=== PATIENT | female | born 1955 | race Caucasian/White ===

== ENCOUNTER 2019-05-02 07:12 | Day surgery (SDC) | payer BC ==
[~2019-05-02] VITALS: Ht 185.4 cm; Wt 66.5 kg
[2019-05-02] VITALS (9 sets, daily range): BP systolic 102–151; BP diastolic 56–71; PULSE 72–78; RESP 14–31; Ht 185.4 cm; Wt 66.5 kg
[~2019-05-02 07:12] MED LIST: ATOR20TA65 ORAL; FLEC100T ORAL; MAGN400T27 PO; METO-335 ORAL; SULF1TAB31 PO
[2019-05-02] MEDS ORDERED: LIDOCAINE 2% (MDV) 20 ML INJ ONE (08:46)
[2019-05-02] MEDS ORDERED: ROCURONIUM 50 MG INJ ONE (09:35)
[2019-05-02] MEDS ORDERED: PROPOFOL 100 ML ONE (09:35)
[2019-05-02] MEDS ORDERED: LIDOCAINE 1% (MPF) 30 ML INJ ONE (09:38)
[2019-05-02] MEDS ORDERED: FENTAnyl 50 MCG/ML VIAL ONE (09:58)
[2019-05-02] MEDS ORDERED: LIDOCAINE 2% (SDV) 5 ML INJ ONE (09:58)
[2019-05-02] MEDS ORDERED: SUGAMMADEX SODIUM 200 MG/2 ML VIAL IV ONE (10:28)
[2019-05-02] MEDS ORDERED: DIPHENHYDRAMINE 50 MG INJ IV PRN (11:00)
[2019-05-02] MEDS ORDERED: OXYCODONE/ACETAMINOPHEN (5/325) TAB PO PRN ×2 (11:00)
[2019-05-02] MEDS ORDERED: ALBUTEROL 0.083% (NEB) 2.5 MG/3 ML AMP HHN PRN (11:00)
[2019-05-02] MEDS ORDERED: METOCLOPRAMIDE 10 MG INJ IV PRN (11:00)
[2019-05-02] MEDS ORDERED: hydrALAzine 20 MG INJ IV PRN (11:00)
[2019-05-02] MEDS ORDERED: FENTAnyl 50 MCG/ML VIAL IV PRN ×3 (11:00)
[2019-05-02] MEDS ORDERED: MEPERIDINE 25 MG INJ IV PRN (11:00)
[2019-05-02] MEDS ORDERED: EPHEDrine 25 MG/5 ML SYG IV PRN (11:00)
[2019-05-02] MEDS ORDERED: ONDANSETRON 4 MG INJ IV PRN (11:00)
[2019-05-02] MEDS ORDERED: LABETALOL HCL 20MG INJ IV PRN (11:00)
[2019-05-02] MEDS ORDERED: ACETAMINOPHEN 325 MG TAB PO ONE (11:30)
== END 2019-05-02 12:05 | disposition home or self-care (01) ==
LOC: SDS 07:12
PROVIDERS: ATTEND Internal Medicine Pulmonary Disease
DX: J47.9 Bronchiectasis, uncomplicated (principal); J18.9 Pneumonia, unspecified organism; I10 Essential (primary) hypertension; E78.5 Hyperlipidemia, unspecified
CPT/HCPCS: 31625; 71045; 85025; 85610; 85730; 87070; 87102; 87116; 88307; 93005; J2405; J3010